=== PATIENT | female | born 1995 | race Caucasian/White ===

== ENCOUNTER 2020-06-06 17:13 | Emergency (ER) | payer OTHER, SELFPAY ==
[2020-06-06 17:30] VITALS: BP 108/73; PULSE 56; RESP 16; TEMP 37.1; O2SAT 100
--- NOTE | 2020-06-06 17:52 | ED.FEMALEGU ---
HPI - Female Genitourinary General Chief complaint: Urogenital-Female Stated complaint: uti Time Seen by Provider: 06/06/20 17:52 Source: patient Mode of arrival: ambulatory Limitations: no limitations History of Present Illness HPI Narrative: Richelle Horne is a 25 yo female w PMH seasonal allergies who comes to express care with dysuria. Patient has had symptoms all week and drink 2 bottles of water today; denies hematuria. Patient has history of UTIs since high school Related Data Home Medications Medication Instructions Recorded Confirmed Zyrtec 06/06/20 epinephrine 06/06/20 estradiol valerate-dienogest tablet 06/06/20 [Natazia] montelukast mg 06/06/20 Allergies Allergy/AdvReac Type Severity Reaction Status Date / Time prednisone Allergy Mild Unknown Verified 12/23/19 12:09 dapsone Allergy Unknown Unknown Verified 12/23/19 12:09 diphenhydramine Allergy Unknown Hallucinati Verified 12/23/19 12:09 ng hydroxychloroquine Allergy Unknown Unknown Verified 12/23/19 12:09 peanut Allergy Unknown Unknown Verified 12/23/19 12:09 Review of Systems Review of Systems: Narrative: CONSTITUTIONAL: Denies fever, chills, sweats. EYES: Denies visual changes, redness, discharge. ENT: Denies rhinorrhea, congestion, sore throat, otalgia. CARDIOVASCULAR: Denies chest pain, palpitations, edema. RESPIRATORY: Denies dyspnea, wheezing, cough GASTROINTESTINAL: Denies abdominal pain, nausea, vomiting, diarrhea. GENITOURINARY: Has dysuria, no hematuria, white discharge. SKIN: Denies rash or itching. NEUROLOGIC: Denies numbness, or focal weakness. PSYCHIATRIC: Denies anxiety or depression. [facility] Family History Family History Mother Family history of thyroid disease Family history of elevated blood lipids Grandparent Hypertension Family history of elevated blood lipids Family history of hypothyroidism Family history of coronary artery disease Family history of malignant neoplasm of urinary bladder Father Family history of malignant neoplasm of skin Social History Social History Smoking status: Never smoker Alcohol intake: current Comments At time of signature, I agree with nursing past medical, surgical, social and family history. There is no relevant family history pertinent to the presenting complaint. Exam Narrative: Exam Narrative: GENERAL: This is a well-nourished, well-developed patient, in mild distress. HEAD: normocephalic, atraumatic. EYES: Sclera clear/white. Vision is grossly intact. EARS: External ears normal, . Hearing grossly intact. NOSE: External nose normal without nasal discharge, nares without redness, no rhinorrhea. THROAT: Mucous membranes moist, NECK: Neck supple, CARDIOVASCULAR: Regular rate and rhythm without murmurs, gallops, or rubs. RESPIRATORY: Clear to auscultation. Breath sounds equal bilaterally. No wheezes, rales, or rhonchi. GASTROINTESTINAL: Abdomen soft, suprapubic tender, mild right CVA tenderness SKIN: warm, intact with no suspicious lesions or rash, good texture and turgor. NEURO: awake, alert, and oriented to person, place and time. There were no obvious focal neurologic abnormalities. Steady gait EXTREMITIES: Normal range of motion. BACK: Nontender without deformity Course Course Emergency Course: UA-negative for leukocyte nitrate or blood patient has been drinking water and has bladder spasm and dysuria so we will treat with Keflex and Pyridium, treat white vaginal discharge with Diflucan. Discussed the possibility that this could be an STD rather than UTI and will send a chlamydia test on urine. Staff will call her if the test is negative so she can be treated with Zithromax and Rocephin as needed. Patient states that she is 99% sure that this is a UTI plus vaginitis as is in 6-year long monogamous relationship but she would want to have james
== END 2020-06-06 18:11 | disposition home or self-care (01) ==
PROVIDERS: Emergency Provider Nurse Practitioner
DX: B37.3 Candidiasis of vulva and vagina (principal); R30.0 Dysuria
CPT/HCPCS: 81003; 87086; 87491; 87591; 99213; G0463

== ENCOUNTER 2021-04-13 10:26 | Emergency (ER) | payer OTHER, SELFPAY ==
[2021-04-13 10:40] VITALS: BP 104/68; PULSE 60; RESP 18; TEMP 36.7; O2SAT 99
--- NOTE | 2021-04-13 11:54 | ED.GENADULT ---
HPI - General Adult General Chief complaint: Upper Respiratory Infection Stated complaint: sore throat congestion dry cough ear pain Time Seen by Provider: 04/13/21 11:54 Source: patient and RN notes reviewed Mode of arrival: ambulatory Limitations: no limitations History of Present Illness HPI narrative: 26-year-old female presents with complaints of upper respiratory infection, facial congestion, cough, sore throat, and intermittent headaches (not the worst of her life) for the past 8 days. Richelle reports increasing symptoms over the past 72 hours with right otalgia. Sudafed, Advil, Tylenol, NyQuil with little relief. History of Seasonal Asthma. No facial swelling. Dry cough without chest congestion. Nasal congestion and rhinorrhea. No chest pain or shortness of breath. No known exacerbating factors. Denies fever. Denies nausea, vomiting, and abdominal pain. Tolerating po intake well. LMP 4 weeks ago, irregular and on control. Remains active. The patient reports she was diagnosed with COVID-19 November,. The patient reports she received the Baudilio and Baudilio vaccine in January 2021. The patient reports she is not waiting for the results of a COVID-19 lab test. The patient reports she do not have chills, weakness, or fatigue. The patient reports she do not have any rash, loss of taste or smell, or diarrhea. Denies recent traveling. Denies concerns for COVID-19 or exposures. At this time, patient is not suspected of having COVID-19. Some parts of this dictation were generated by voice recognition software and may contain typographical and/or grammatical inaccuracies. Related Data Home Medications Medication Instructions Recorded Confirmed epinephrine See Rx Instructions .ROUTE .COMPLEX 06/06/20 estradiol valerate-dienogest 1 tablet PO DAILY 06/06/20 [Natazia] Allergies Allergy/AdvReac Type Severity Reaction Status Date / Time peanut Allergy Unknown Unknown Verified 04/13/21 10:51 prednisone AdvReac Mild Unknown Verified 04/13/21 11:12 dapsone AdvReac Unknown Unknown Verified 04/13/21 11:12 diphenhydramine AdvReac Unknown Hallucinati Verified 04/13/21 11:10 ng hydroxychloroquine AdvReac Unknown Unknown Verified 04/13/21 11:12 Review of Systems Review of Systems: Narrative: CONSTITUTIONAL: Denies fever, chills, sweats. EYES: Denies visual changes, redness, discharge. ENT: Complains of rhinorrhea, congestion, sore throat, RT otalgia. CARDIOVASCULAR: Denies chest pain, palpitations, edema. RESPIRATORY: Denies dyspnea, wheezing. Complains of dry cough. GASTROINTESTINAL: Denies abdominal pain, nausea, vomiting, diarrhea. GENITOURINARY: Denies dysuria, hematuria, abnormal discharge. SKIN: Denies rash or itching. MUSCULOSKELETAL: Denies acute back pain, joint pain, or myalgia. NEUROLOGIC: Denies numbness or focal weakness. Complains of intermittent KEITH. PSYCHIATRIC: Denies anxiety or depression. All systems reviewed & are unremarkable except as noted in HPI and below. [facility] Past Medical History Medical History (Updated 04/14/21 @ 00:01 by Liz Galan) Bacterial UTI Seasonal asthma Surgical History Surgical History (Updated 04/13/21 @ 12:10 by EFREN Boo) No significant past surgical history Family History Family History Mother Family history of thyroid disease Family history of elevated blood lipids Grandparent Hypertension Family history of elevated blood lipids Family history of hypothyroidism Family history of coronary artery disease Family history of malignant neoplasm of urinary bladder Father Family history of malignant neoplasm of skin Social History Social History (Updated 04/13/21 @ 12:10 by EFREN Boo) Smoking status: Never smoker Tobacco type: cigarettes Second hand tobacco smoke exposure: No Alcohol intake: current Substance use: never Living arrangements
== END 2021-04-13 12:20 | disposition home or self-care (01) ==
PROVIDERS: Emergency Provider Nurse Practitioner Family
DX: J32.9 Chronic sinusitis, unspecified (principal); H92.01 Otalgia, right ear; Z20.822 Contact with and (suspected) exposure to COVID-19; J45.909 Unspecified asthma, uncomplicated
CPT/HCPCS: 87081; 87426; 87880; 99213; C9803; G0463

== ENCOUNTER 2021-04-20 19:12 | Emergency (ER) | payer OTHER, SELFPAY ==
[2021-04-20 19:25] VITALS: BP 124/73; PULSE 72; RESP 18; TEMP 36.9; O2SAT 98
--- NOTE | 2021-04-20 19:40 | ED.URI ---
HPI - URI/Sore Throat General Chief Complaint: Upper Respiratory Infection Stated Complaint: upper respiratory infection Time Seen by Provider: 04/20/21 19:44 Source: patient History of Present Illness HPI Narrative: Patient presents with sore throat and the feeling of ear fullness. No fever no shortness of breath no trouble swallowing no drooling Related Data Home Medications Medication Instructions Recorded Confirmed epinephrine See Rx Instructions .ROUTE .COMPLEX 06/06/20 estradiol valerate-dienogest 1 tablet PO DAILY 06/06/20 [Natazia] Allergies Allergy/AdvReac Type Severity Reaction Status Date / Time peanut Allergy Unknown Unknown Verified 04/13/21 10:51 prednisone AdvReac Mild Unknown Verified 04/13/21 11:12 dapsone AdvReac Unknown Unknown Verified 04/13/21 11:12 diphenhydramine AdvReac Unknown Hallucinati Verified 04/13/21 11:10 ng hydroxychloroquine AdvReac Unknown Unknown Verified 04/13/21 11:12 Review of Systems Review of Systems: Narrative: CONSTITUTIONAL: Denies chills, or sweats. Reports fever and generalized body aches EYES: Denies visual changes, redness, or discharge. ENT: Denies otalgia. Reports nasal congestion runny nose and sore throat CARDIOVASCULAR: Denies chest pain, palpitations, or edema. RESPIRATORY: Denies dyspnea. Reports occasional cough GASTROINTESTINAL: Denies abdominal pain, nausea, vomiting, or diarrhea. GENITOURINARY: Denies dysuria or hematuria. SKIN: Denies rash or itching. MUSCULOSKELETAL: Denies back pain, joint pain, or myalgia. Reports generalized body aches NEUROLOGIC: Denies headache, numbness, or weakness. PSYCHIATRIC: Denies anxiety or depression. [facility] Past Medical History Medical History (Updated 04/20/21 @ 19:44 by EFREN Bliss) Bacterial UTI Seasonal asthma Surgical History Surgical History (Updated 04/13/21 @ 12:10 by EFREN Boo) No significant past surgical history Family History Family History Mother Family history of thyroid disease Family history of elevated blood lipids Grandparent Hypertension Family history of elevated blood lipids Family history of hypothyroidism Family history of coronary artery disease Family history of malignant neoplasm of urinary bladder Father Family history of malignant neoplasm of skin Social History Social History (Updated 04/13/21 @ 12:10 by EFREN Boo) Smoking status: Never smoker Tobacco type: cigarettes Second hand tobacco smoke exposure: No Alcohol intake: current Substance use: never Gender identity (if verbalized by the patient): Female Comments At time of signature, agree with nursing past medical, surgical, social and family history. There is no relevant family history pertinent to the presenting complaint Exam Narrative: Exam Narrative: The patient is a well-developed, well-nourished in no acute distress. SKIN: Skin is warm and dry without erythema, swelling or exudate. There is good turgor. No tenting. HEAD: Atraumatic. Normocephalic. No temporal or scalp tenderness. EYES: Moist and bright. Sclera and conjunctivae normal. No discharge. PERRLA. Extraocular motions intact. Gross visual acuity intact. EARS: Pinna is normal shape and contour. Clear external auditory canals. TM pearly mancera with good cone of light, no erythema or suppuration. Bilateral cerumen noted no gross hearing deficit. NOSE: pink, moist mucosa with good air movement. Clear rhinorrhea without nasal flaring. Septum midline. Mouth: moist mucous membranes. THROAT; mild erythema noted to posterior oropharynx with moderate postnasal drainage. Without exudate or ulceration.. Uvula midline. Normal movement of soft palate. NECK: Supple and nontender with full range of motion without discomfort. No meningeal signs. LUNGS: Equal and bilateral breath sounds without wheezes, rales or rhonchi. CHEST: The chest wall is withou
== END 2021-04-20 19:47 | disposition home or self-care (01) ==
PROVIDERS: Emergency Provider Nurse Practitioner Family
DX: R09.82 Postnasal drip (principal); H69.90 Unspecified Eustachian tube disorder, unspecified ear
CPT/HCPCS: 87081; 87880; 99213; G0463

== ENCOUNTER 2021-04-27 10:09 | Emergency (ER) | payer OTHER, SELFPAY ==
--- NOTE | ~2021-04-27 | XR_ITS ---
EXAMINATION: XR chest 2V DATE: 04/27/2021 10:39 INDICATION: Cough. TECHNIQUE: Frontal and lateral views of the chest were obtained. COMPARISON: CT abdomen 04/24/2008 FINDINGS: The chest demonstrates clear lungs without pneumonia, pleural effusion, or pneumothorax. Th e heart size is normal. IMPRESSION: 1. No acute cardiopulmonary disease. Reviewed, dictated and finalized at location A.
[2021-04-27 10:19] VITALS: BP 113/75; PULSE 71; RESP 16; TEMP 36.6; O2SAT 99
--- NOTE | 2021-04-27 10:43 | ED.URI ---
HPI - URI/Sore Throat General Chief Complaint: Upper Respiratory Infection Stated Complaint: Sore Throat Source: patient and RN notes reviewed Limitations: no limitations History of Present Illness HPI Narrative: The patient, a non-smoker/occasional drinker with pets [dog] and who is a dental student, presents with scratchy throat, PND and recurrent cough. Patient states she has had nearly month-long history of cough unresponsive to Singulair, steroids x2, OTC preparations like Mucinex, zyrtec. Symptoms are mild, worse at night , associated with scratchy throat which radiates upward. No fever, wheeze, sinusitis/URI, sputum changes, CP, calf pain/edema, S OB; she has been Covid tested earlier in the month, and vaccinated [J & J]. Her past history is remarkable for prior history of chronic urticaria treated in the past with cyclosporine. Related Data Home Medications Medication Instructions Recorded Confirmed epinephrine See Rx Instructions .ROUTE .COMPLEX 06/06/20 04/20/21 estradiol valerate-dienogest 1 tablet PO DAILY 06/06/20 04/20/21 [Natazia] Allergies Allergy/AdvReac Type Severity Reaction Status Date / Time peanut Allergy Unknown Unknown Verified 04/27/21 10:32 prednisone AdvReac Mild Unknown Verified 04/27/21 10:32 dapsone AdvReac Unknown Unknown Verified 04/27/21 10:32 diphenhydramine AdvReac Unknown Hallucinati Verified 04/27/21 10:32 ng hydroxychloroquine AdvReac Unknown Unknown Verified 04/27/21 10:32 Review of Systems Review of Systems: Narrative: General/Constitutional: No weight loss,fever Eyes: N0: Redness,discharge Ears/Nose/Throat: No: Epistaxis,ear discharge Respiratory: Denies: Hemoptysis Gastrointestinal: No Vomiting, Bleeding-rectal Skin: No Lumps, eruption Neurologic: No Focal Weakness,Sz Hematologic: Denies: Petechiae/Purpura Psychiatric: No: Suicida ideationl All Other Systems: Reviewed and Negative [facility] Past Medical History Medical History (Updated 04/27/21 @ 11:04 by Farhat Lawrence MD) Bacterial UTI Seasonal asthma Surgical History Surgical History (Updated 04/13/21 @ 12:10 by EFREN Boo) No significant past surgical history Family History Family History Mother Family history of thyroid disease Family history of elevated blood lipids Grandparent Hypertension Family history of elevated blood lipids Family history of hypothyroidism Family history of coronary artery disease Family history of malignant neoplasm of urinary bladder Father Family history of malignant neoplasm of skin Social History Social History (Updated 04/13/21 @ 12:10 by EFREN Boo) Smoking status: Never smoker Tobacco type: cigarettes Second hand tobacco smoke exposure: No Alcohol intake: current Substance use: never Gender identity (if verbalized by the patient): Female Comments At time of signature, agree with nursing past medical, surgical, social and family history. There is no relevant family history pertinent to the presenting complaint Exam Narrative: Exam Narrative: General Appearance: Well appearing, No distress, Conjunctiva clear Ears: External ear normal Nose: Normal nose Mouth/Throat: Normal appearing, Normal lips Supple Respiratory: Airway patent, No respiratory distress, CTA Cardiovascular: RRR Abdomen: Soft, Non-tender, No massess, No organomegaly Musculoskeletal: Full ROM Skin: Warm, Dry Neurological: A&O x3, Normal affect Course Vital Signs Vital signs: Vital Signs Temperature 97.8 F 04/27/21 10:19 Pulse Rate 71 04/27/21 10:19 Respiratory Rate 16 04/27/21 10:19 Blood Pressure 113/75 04/27/21 10:19 Pulse Oximetry 99 04/27/21 10:19 Temperature 97.8 F 04/27/21 10:19 Pulse Rate 71 04/27/21 10:19 Respiratory Rate 16 04/27/21 10:19 Blood Pressure 113/75 04/27/21 10:19 Pulse Oximetry 99 04/27/21 10:19 D
== END 2021-04-27 11:06 | disposition home or self-care (01) ==
PROVIDERS: Emergency Provider Emergency Medicine
DX: R05 Cough (principal)
CPT/HCPCS: 71046; 99213; G0463